=== PATIENT | female | born 1960 | race Caucasian/White ===

== ENCOUNTER 2016-10-22 00:10 | Inpatient (IN) | payer OTHER ==
[~2016-10-22] VITALS: Ht 160 cm; Wt 68.9 kg
[~2016-10-22 00:10] MED LIST: /ESOM40CA PO; /ONDA4TA PO; /PANT40TA OR; /SUCR1TA OR; ACET65TA OR; ALLE25CA OR; ASPI650T2 OR; FERR325T OR; FLAG250T PO; IBUP200C PO; LEVO500T PO; METO10TA2 OR; MULTIVIT PO; PERCOCET PO
[2016-10-22] MEDS ORDERED: GI COCKTAIL 50ML BTL(HYOSCYAMINE/MAALOX/LIDOCAINE VISCOUS)(1:3:1) PO ONE (02:00)
[2016-10-22 02:23] LABS: BASO % 0.3 % (0.0-1.0); EOS # 0.1 K/mm3 (0.0-0.50); EOS % 1.5 % (0.0-3.0); LARGE UNSTAINED CELL # 0.1 K/mm3 (0.0-0.4); LYMPH # 1.2 K/mm3 (1.5-4.5); LYMPH % 16.4 % (24.0-44.0); MEAN CORPUSCULAR HEMOGLOBIN 30.3 pg (27.0-33.0); MEAN CORPUSCULAR HGB CONC 33.2 g/dl (32.0-36.5); MEAN CORPUSCULAR VOLUME 91.2 fl (80.0-96.0); MONO # 0.4 K/mm3 (0.0-0.8); MONO % 5.2 % (0.0-5.0); NEUTROPHILS # 5.5 K/mm3 (1.8-7.7); NEUTROPHILS % 74.5 % (36.0-66.0); PLATELET COUNT, AUTOMATED 322 k/mm3 (150-450); RED CELL DISTRIBUTION WIDTH 13.4 % (11.5-14.5); WHITE BLOOD COUNT 7.4 K/mm3 (4.0-10.0)
[2016-10-22 02:38] LABS: ALBUMIN 4.6 GM/DL (3.2-5.2); ALBUMIN/GLOBULIN RATIO 1.24 (1.00-1.93); ALKALINE PHOSPHATASE 123 U/L (45-117); ALT/SGPT 199 U/L (12-78); ANION GAP 14 MEQ/L (8-16); AST/SGOT 230 U/L (15-37); BILIRUBIN,DIRECT 0.1 MG/DL (0.0-0.2); BILIRUBIN,TOTAL 0.4 MG/DL (0.2-1.0); BLOOD UREA NITROGEN 14 MG/DL (7-18); CALCIUM LEVEL 9.4 MG/DL (8.5-10.1); CARBON DIOXIDE LEVEL 26 MEQ/L (21-32); CHLORIDE LEVEL 99 MEQ/L (98-107); CREATININE FOR GFR 0.83 MG/DL (0.55-1.02); GLOMERULAR FILTRATION RATE > 60.0 (>51); GLUCOSE, FASTING 77 MG/DL (70-105); POTASSIUM SERUM 3.8 MEQ/L (3.5-5.1); SODIUM LEVEL 139 MEQ/L (136-145); TOTAL PROTEIN 8.3 GM/DL (6.4-8.2)
[2016-10-22] MEDS ORDERED: NS 1,000 ML IV ONE (03:15)
[2016-10-22] MEDS ORDERED: MORPHINE 4 MG/ML 1ML SYRINGE IV ONE (03:15)
--- NOTE | 2016-10-22 04:30 | REPUSA ---
CLINICAL HISTORY: Evaluate biliary tree. TECHNIQUE: Realtime sonographic images were obtained in multiple projections. COMMENTS: The liver is of normal size, parenchyma demonstrates normal echogenicity. No discrete hepatic mass is seen. There is no intra or extrahepatic biliary ductal dilatation. CBD measures 4.5mm. The gallbladder is p hysiologically distended with evidence of calculi. The gallbladder wall is not thickened and there is no pericholecystic fluid. There is no abdominal ascites. The right kidney measures 9.7x4.3x4.4 cm, free of hydronephrosis. IMPRESSION: Cholelithiasis. Thank you for your kind referral of this patient.
[2016-10-22] MEDS ORDERED: ISOVUE-370 76% 100ML VIAL (Q9967) As Ordered ONE (04:33)
--- NOTE | 2016-10-22 05:11 | REPUSA ---
CLINICAL HISTORY: Abdominal pain. TECHNIQUE: Multiple axial, sagittal and coronal CT images were obtained through the abdomen and pelvi s after administration of intravenous contrast material. COMMENTS: 1.2 cm well-defined hypodense lesion of the right hepatic lobe. The liver is of uniform attenuation without mass or defect. There is no intra or extrahepatic biliary ductal dilatation. The spleen is normal. The gallbladder is within normal limits. The pancreas is of normal contour and attenuation characteristics. There is no evidence of adrenal mass. Changes from prior gastric bypass surgery. 3 mm right renal nonobstructing stone. Both kidneys demonstrate prompt and equal nephrograms. The kidneys are normal in size, shape and conf iguration. There is no evidence of renal or ureteral mass. No left renal or ureteral calculi are iden tified. There is no hydroureter or hydronephrosis. No evidence for appendicitis. There is no bowel wall thickening. No evidence for small or large nicole l obstruction. There is no evidence of abdominal ascites or lymphadenopathy. There is no evidence of intrinsic or extrinsic bladder mass. There is no pelvic ascites or lymphadeno pepper. Diffuse thickening of the wall of the bladder. Images of the lung bases show no evidence of pleural or parenchymal mass. There are no pleural effusi ons. The bony structures are free of lytic or blastic lesions. Anterolisthesis of L5 on S1 measuring 12 mm. Associated spondylosis. IMPRESSION: Cholelithiasis. Nondilated biliary tree. Distended gallbladder. Nonobstructing right nephrolithiasis. Thickened bladder suspicious for cystitis. Fecal stasis in the large bowel. Thank you for your kind referral of this patient.
[2016-10-22] MEDS ORDERED: HYDROmorphone HCL 1 MG/ML SYRINGE (J1170) IV ONE (05:45)
[2016-10-22] MEDS ORDERED: MORPHINE 2 MG/ML 1ML SYRINGE IV PRN (08:15)
[2016-10-22] MEDS ORDERED: ONDANSETRON 4MG/2ML VIAL (J2405) IV PRN (08:15)
[2016-10-22] MEDS ORDERED: NORCO, ANEXSIA 5/325MG TABLET (HYDROcodone/ACETAMINOPHEN) PO PRN (08:15)
[2016-10-22] MEDS ORDERED: ACETAMINOPHEN TAB 650MG DOSE (2X325MG) PO PRN (08:15)
[2016-10-22 09:36] VITALS: BP 147/82
[2016-10-22] MEDS: metroNIDAZOLE 500 MG in APPROPRIATE DILUENT 1 EA IV SCH ×3 (09:51→21:02)
[2016-10-22] MEDS: LR 1,000 ML IV SCH ×2 (09:51→21:02)
[2016-10-22] MEDS: SENOKOT S TAB PO SCH ×2 (09:51→21:03)
[2016-10-22] MEDS: CIPROFLOXACIN 400 MG in APPROPRIATE DILUENT 1 EA IV SCH ×2 (11:04→22:23)
[2016-10-22 14:00] VITALS: BP 141/72
[2016-10-22 15:51] LABS: ALBUMIN 3.9 GM/DL (3.2-5.2); ALBUMIN/GLOBULIN RATIO 1.34 (1.00-1.93); ALKALINE PHOSPHATASE 94 U/L (45-117); ALT/SGPT 126 U/L (12-78); ANION GAP 6 MEQ/L (8-16); AST/SGOT 90 U/L (15-37); BILIRUBIN,TOTAL 0.3 MG/DL (0.2-1.0); BLOOD UREA NITROGEN 7 MG/DL (7-18); CALCIUM LEVEL 9.2 MG/DL (8.5-10.1); CARBON DIOXIDE LEVEL 29 MEQ/L (21-32); CHLORIDE LEVEL 106 MEQ/L (98-107); CREATININE FOR GFR 0.66 MG/DL (0.55-1.02); GLOMERULAR FILTRATION RATE > 60.0 (>51); GLUCOSE, FASTING 86 MG/DL (70-105); POTASSIUM SERUM 4.6 MEQ/L (3.5-5.1); SODIUM LEVEL 141 MEQ/L (136-145); TOTAL PROTEIN 6.8 GM/DL (6.4-8.2)
[2016-10-22 22:00] VITALS: BP 156/84
[2016-10-23] VITALS (8 sets, daily range): BP systolic 121–142; BP diastolic 66–84
[2016-10-23] MEDS: metroNIDAZOLE 500 MG in APPROPRIATE DILUENT 1 EA IV SCH ×4 (02:57→20:03)
[2016-10-23 06:47] LABS: BASO % 0.3 % (0.0-1.0); EOS # 0.2 K/mm3 (0.0-0.50); EOS % 3.2 % (0.0-3.0); LARGE UNSTAINED CELL # 0.1 K/mm3 (0.0-0.4); LARGE UNSTAINED CELL % 1.9 % (0.0-4.0); LYMPH # 1.2 K/mm3 (1.5-4.5); LYMPH % 18.1 % (24.0-44.0); MEAN CORPUSCULAR HEMOGLOBIN 29.8 pg (27.0-33.0); MEAN CORPUSCULAR HGB CONC 32.2 g/dl (32.0-36.5); MEAN CORPUSCULAR VOLUME 92.4 fl (80.0-96.0); MONO # 0.4 K/mm3 (0.0-0.8); MONO % 6.6 % (0.0-5.0); NEUTROPHILS # 4.7 K/mm3 (1.8-7.7); NEUTROPHILS % 69.9 % (36.0-66.0); PLATELET COUNT, AUTOMATED 269 k/mm3 (150-450); RED CELL DISTRIBUTION WIDTH 13.5 % (11.5-14.5); WHITE BLOOD COUNT 6.7 K/mm3 (4.0-10.0)
[2016-10-23 07:14] LABS: ALBUMIN 3.5 GM/DL (3.2-5.2); ALBUMIN/GLOBULIN RATIO 1.17 (1.00-1.93); ALKALINE PHOSPHATASE 82 U/L (45-117); ALT/SGPT 88 U/L (12-78); ANION GAP 4 MEQ/L (8-16); AST/SGOT 43 U/L (15-37); BILIRUBIN,TOTAL 0.3 MG/DL (0.2-1.0); BLOOD UREA NITROGEN 4 MG/DL (7-18); CALCIUM LEVEL 8.8 MG/DL (8.5-10.1); CARBON DIOXIDE LEVEL 31 MEQ/L (21-32); CHLORIDE LEVEL 107 MEQ/L (98-107); CREATININE FOR GFR 0.71 MG/DL (0.55-1.02); GLOMERULAR FILTRATION RATE > 60.0 (>51); GLUCOSE, FASTING 96 MG/DL (70-105); POTASSIUM SERUM 4.3 MEQ/L (3.5-5.1); SODIUM LEVEL 142 MEQ/L (136-145); TOTAL PROTEIN 6.5 GM/DL (6.4-8.2)
[2016-10-23] MEDS: SENOKOT S TAB PO SCH ×2 (08:25→20:03)
[2016-10-23] MEDS: NORCO, ANEXSIA 5/325MG TABLET (HYDROcodone/ACETAMINOPHEN) PO PRN ×2 (08:26→14:35)
[2016-10-23] MEDS: CIPROFLOXACIN 400 MG in APPROPRIATE DILUENT 1 EA IV SCH ×2 (09:52→21:19)
[2016-10-23] MEDS ORDERED: LIDOCAINE 1% SDV INJ 30 ML VIAL As Ordered ONE (14:23)
[2016-10-23] MEDS ORDERED: BUPIVACAINE HCL 0.25% 30 ML VIAL As Ordered ONE (14:23)
[2016-10-23] MEDS ORDERED: CONRAY-60 60% 50ML VIAL (Q9961) As Ordered ONE (14:23)
[2016-10-23] MEDS: LR 1,000 ML IV SCH ×2 (14:29→20:03)
[2016-10-23] MEDS ORDERED: MIDAZOLAM INJ 2 MG/2 ML VIAL (J2250) As Ordered ONE (16:54)
[2016-10-23] MEDS ORDERED: fentaNYL 250 MCG/5 ML INJECTION (J3010) As Ordered ONE (16:54)
[2016-10-23] MEDS ORDERED: PROPOFOL 200 MG/20 ML VIAL As Ordered ONE (16:54)
[2016-10-23] MEDS ORDERED: LIDOCAINE 2% INJ 100 MG/5 ML SDV (FOR ANES.) As Ordered ONE (16:54)
[2016-10-23] MEDS ORDERED: ROCURONIUM BROMIDE 50 MG/5 ML VIAL As Ordered ONE ×2 (16:54→18:02)
[2016-10-23] MEDS ORDERED: ePHEDrine SULFATE 25 MG/5 ML(5MG/ML) SYRINGE As Ordered ONE (17:20)
[2016-10-23] MEDS ORDERED: NEOSTIGMINE 1MG/ML 5 ML SYRINGE (J2710) As Ordered ONE (17:34)
[2016-10-23] MEDS ORDERED: ONDANSETRON 4MG/2ML VIAL (J2405) As Ordered ONE (17:34)
[2016-10-23] MEDS ORDERED: KETOROLAC 60 MG/2 ML VIAL (J1885) As Ordered ONE (17:34)
[2016-10-23] MEDS ORDERED: dexameTHASONE 4 MG/ML 1ML VIAL (J1100) As Ordered ONE (17:34)
[2016-10-23] MEDS ORDERED: GLYCOPYRROLATE INJ 0.2 MG/ML 2 ML VIAL As Ordered ONE (17:34)
[2016-10-23] MEDS ORDERED: METOCLOPRAMIDE INJ 10MG/2ML VIAL (J2765) As Ordered ONE (18:22)
--- NOTE | 2016-10-23 18:40 | ROOPDOC ---
[facility] Report Of Operation Report of Operation DATE OF PROCEDURE: 10/23/16 PREPROCEDURE DIAGNOSIS: Cholelithiasis, possible Acute Cholecystitis POSTPROCEDURE DIAGNOSIS: PROCEDURE: Laparoscopic Cholecystectomy with Intraoperative Cholangiogram SURGEON: Dianelys COATER BRAKE LININGS: none ANESTHESIA: general EBL: 30-40 MlS OPERATIVE FINDINGS: dilated gallbladder without acute inflammation. Enlarged liver, fatty replaced. Intraoperative cholangiogram did not show any cbd stones Patient is admitted for epigastric and right upper quadrant pain associated with her cholelithiasis. She had previous history of laparoscopic gastric bypass. She has some mild abnormal LFTs on presentation which gradually came down on its own suspicious for possible transient passage of stone from the gallbladder through the biliary tree. She is brought to the OR for laparoscopic cholecystectomy and planned intraoperative cholangiogram to make sure no leftover stones in the common bile duct. She has been receiving Cipro and metronidazole perioperatively. She was brought to the operating room, placed supine on the table. General endotracheal anesthesia started. Her abdomen prepped and draped in usual sterile fashion. She had compression stockings for DVT prophylaxis. After surgical timeout him again surgery. Entry into the abdomen done through an incision above the umbilicus. Veress needle inserted and intra-abdominal insufflation done to a pressure of 15 mmHg. Using the same incision a 5 mm Visiport was placed under direct vision laparoscope. She was then placed on the reverse Trendelenburg position, her right side tilted up about 30 to further expose the gallbladder. 3 working ports were placed in their usual position including an 11 mm port at the epigastric area. The gallbladder was noted to be moderately distended, extending several centimeters off from the liver edge. Parts of the liver appears fatty replaced but still smooth in appearance. Fundus of gallbladder was grasped and the gallbladder elevated superiorly exposing the infundibulum neck to gallbladder. There were some small adhesions at the underside of the gallbladder which was easily lysed. The past cystic triangle was dissected both with [place] instrument and Bovie cautery. The cystic duct was identified as well as the cystic artery. There were both circumferentially dissected. The posterior wall of the neck of the gallbladder was likewise dissected free off the liver bed. The Archer clamp was then used in the neck the gallbladder was clamped off. The cholangiogram needle inserted under direct vision into the infundibulum of the gallbladder. We tested this is noted to be working. Cholangiogram was then performed. There was reflux back of the contrast into the gallbladder. We repositioned the clamp and we did the cholangiogram. The cystic duct, common bile duct was opacified but the distal part did not opacify much but the duct was noted to be of normal caliber and no filling defect identified. Contrast went through to the duodenum. He proceeded with the surgery removing the rest of the gallbladder from the liver bed. There was some mild oozing at the middle off the liver bed as well as the lateral capsular edge of the gallbladder. This was controlled with Bovie cautery. Gallbladder was removed. On re-insufflation and we irrigated as we had some spillage of bile from the cholangiogram catheter insertion site. All visible bile irrigated and suctioned off until there was clear return. The bleeding portion of the liver was examined and noted good hemostasis at the end of the procedure. The clips were noted to be in place. The abdomen was then deflated. All ports were removed. The epigastric fascial defect repaired with 0 Vicryl in mattress fashion. All skin incisions closed with 4-0 Monocryl in subcuticular fashion Steri-Strips and gauze dressings and placed. Patient was then promptly awake and extubated and brought to the recovery room stable sponges and instruments verified to be correct . SANDIP RAHMAN MD October 23, 2016 17:23
[2016-10-23] MEDS ORDERED: MEPERIDINE INJ 25 MG/ML VIAL (J2175) IV PRN (19:00)
[2016-10-23] MEDS ORDERED: PERCOCET 5MG/325MG TAB PO PRN (19:00)
[2016-10-23] MEDS ORDERED: ONDANSETRON 4MG/2ML VIAL (J2405) IV PRN (19:00)
[2016-10-23] MEDS ORDERED: fentaNYL 100 MCG/2 ML INJECTION (J3010) IV PRN (19:00)
[2016-10-23] MEDS ORDERED: METOCLOPRAMIDE INJ 10MG/2ML VIAL (J2765) IV PRN (19:00)
[2016-10-23] MEDS ORDERED: LR 1,000 ML IV SCH (19:00)
--- NOTE | 2016-10-23 19:30 | REP ---
Intraoperative cholangiogram: Eight views: History: Cholecystitis. 1 minute 48 seconds of fluoroscopy time reported. Findings: A sequence of eight last image hold fluoroscopic spot radiographs of the right upper quadrant of the abdomen demonstrate contrast injection opacifying a homogeneous gallbladder and partially filling the common bile duct. No common bile duct stone is seen. The intrahepatic bile ducts are poorly visualized. There is some contrast in the duodenum. There is a moderate amount of contrast which appears to be pooling in the peritoneal space at the lateral margin of the liver. Signed by Steven Sánchez MD 10/23/2016 08:48 P
[2016-10-24 00:35] VITALS: BP 127/73
[2016-10-24 02:00] VITALS: BP 119/74
[2016-10-24] MEDS: metroNIDAZOLE 500 MG in APPROPRIATE DILUENT 1 EA IV SCH ×2 (02:51→09:00)
[2016-10-24 05:10] VITALS: BP 138/85
[2016-10-24] MEDS: LR 1,000 ML IV SCH (09:00)
[2016-10-24] MEDS: SENOKOT S TAB PO SCH (09:00)
[2016-10-24 09:01] LABS: BASO % 0.4 % (0.0-1.0); EOS # 0.2 K/mm3 (0.0-0.50); EOS % 1.8 % (0.0-3.0); LARGE UNSTAINED CELL # 0.1 K/mm3 (0.0-0.4); LARGE UNSTAINED CELL % 0.9 % (0.0-4.0); LYMPH # 1.4 K/mm3 (1.5-4.5); LYMPH % 15.1 % (24.0-44.0); MEAN CORPUSCULAR HEMOGLOBIN 30.1 pg (27.0-33.0); MEAN CORPUSCULAR HGB CONC 32.9 g/dl (32.0-36.5); MEAN CORPUSCULAR VOLUME 91.4 fl (80.0-96.0); MONO # 0.4 K/mm3 (0.0-0.8); MONO % 4.5 % (0.0-5.0); NEUTROPHILS # 6.9 K/mm3 (1.8-7.7); NEUTROPHILS % 77.3 % (36.0-66.0); PLATELET COUNT, AUTOMATED 224 k/mm3 (150-450); RED CELL DISTRIBUTION WIDTH 13.7 % (11.5-14.5); WHITE BLOOD COUNT 8.9 K/mm3 (4.0-10.0)
[2016-10-24 09:21] LABS: ALBUMIN 3.3 GM/DL (3.2-5.2); ALBUMIN/GLOBULIN RATIO 1.27 (1.00-1.93); ALKALINE PHOSPHATASE 77 U/L (45-117); ALT/SGPT 77 U/L (12-78); ANION GAP 9 MEQ/L (8-16); AST/SGOT 43 U/L (15-37); BILIRUBIN,TOTAL 0.2 MG/DL (0.2-1.0); BLOOD UREA NITROGEN 5 MG/DL (7-18); CALCIUM LEVEL 8.4 MG/DL (8.5-10.1); CARBON DIOXIDE LEVEL 28 MEQ/L (21-32); CHLORIDE LEVEL 105 MEQ/L (98-107); CREATININE FOR GFR 0.75 MG/DL (0.55-1.02); GLOMERULAR FILTRATION RATE > 60.0 (>51); GLUCOSE, FASTING 133 MG/DL (70-105); POTASSIUM SERUM 3.7 MEQ/L (3.5-5.1); SODIUM LEVEL 142 MEQ/L (136-145); TOTAL PROTEIN 5.9 GM/DL (6.4-8.2)
[2016-10-24 10:00] VITALS: BP 144/85
[2016-10-24] MEDS: CIPROFLOXACIN 400 MG in APPROPRIATE DILUENT 1 EA IV SCH (10:10)
[2016-10-24] MEDS ORDERED: NORCOTAB PO (10:19)
--- NOTE | 2016-10-24 10:27 | IPNPDOC ---
Assessment/Plan Date Seen Date Seen The patient was seen on 10/24/16. Plan / VTE VTE Prophylaxis Ordered?: No VTE Exclusion Mechanical Proph: Low Risk for VTE VTE Exclusion Pharmacological: At Low Risk for VTE Plan Diet: Continue Current Activity: Encourage Ambulation Anticipated Discharge: Home (Does not need antibiotics, will d/c on pain meds. Follow up with me in 2 weeks) Subjective CC/HPI The patient is a 55-year-old female admitted with a reason for visit of Abnormal Lfts; Cholelithiasis. Events since last encounter Patient had laparoscopic cholecystectomy with intraoperative cholangiogram yesterday. Cholangiogram did not reveal any stones in the common bile duct. Patiend doing well postoperatively. Tolerating regulard diet. Denies nausea, vomiting. No febrile episodes reported General: Reports: Normal Appetite, Denies: Chills, Night Sweats, Fatigue, Malaise Constitutional: Denies: Chills, Fever, Night Sweats Eyes: Denies: Pain, Vision change Skin: Denies: Rash, Lesions, Breakdown Gastrointestinal: Denies: Nausea, Vomiting, Abdominal Pain, Diarrhea, Constipation Objective General Exam: No Acute Distress EYE EXAM: PERRLA, Conjunctiva & lids normal, EOMI, No: Sclera icteric Chest Exam: Clear to auscultation Heart Exam: Rate Normal ABDOMEN EXAM: Other (abdomen soft, nondistended. Port sites clean dry and intact. Nontender over the right upper quadrant area) Extremity Exam: Normal pulses, No: Clubbing, Cyanosis, Edema Skin Exam: Nl turgor and temperature, No: Rash, Breakdown VS/I&O Vital Sign - Last 24 Hours 10/23/16 10/23/16 10/23/16 10/23/16 08:26 14:00 14:35 15:10 Temp 97.9 Pulse 72 Resp 18 17 18 18 B/P (MAP) 142/84 (103) Pulse Ox 100 O2 Delivery Room Air Room Air Room Air Room Air 10/23/16 10/23/16 10/23/16 10/23/16 16:00 18:51 18:55 19:00 Temp 99.3 97.1 Pulse 78 97 97 82 Resp 17 20 20 20 B/P (MAP) 124/66 (85) 142/73 (96) 161/77 (105) 148/78 (101) Pulse Ox 98 97 99 97 O2 Delivery Room Air Nasal Cannula Nasal Cannula Nasal Cannula O2 Flow Rate 2 2 2 10/23/16 10/23/16 10/23/16 10/23/16 19:05 19:10 19:15 19:20 Temp 97.8 Pulse 91 83 78 71 Resp 20 20 20 20 B/P (MAP) 134/68 (90) 141/76 (97) 133/75 (94) 130/77 (94) Pulse Ox 96 98 95 94 O2 Delivery Room Air Room Air Room Air Room Air 10/23/16 10/23/16 10/23/16 10/23/16 19:25 19:35 20:05 20:35 Temp 98.2 98.5 98.4 Pulse 68 75 80 102 Resp 18 B/P (MAP) 124/72 (89) 128/75 (92) 132/68 (89) 127/77 (94) Pulse Ox 94 94 97 95 O2 Delivery Room Air Room Air Room Air Room Air 10/23/16 10/23/16 10/24/16 10/24/16 22:35 23:35 00:35 02:00 Temp 98.9 98.5 98.9 98.9 Pulse 93 102 99 98 Resp B/P (MAP) 126/76 (93) 121/66 (84) 127/73 (91) 119/74 (89) Pulse Ox 95 95 97 97 O2 Delivery Room Air Room Air Room Air Room Air 10/24/16 10/24/16 05:10 06:05 Temp 99.4 99.1 Pulse 98 Resp B/P (MAP) 138/85 (102) Pulse Ox 94 O2 Delivery Room Air I&O- Last 24 Hours up to 6 AM 10/24/16 06:00 Intake Total 3600 ml Output Total 2530 ml Balance 1070 ml CBC/BMP labs reviewed, LFTs normal except mild elevated AST at 43Laboratory Tests 10/24/16 08:40 Red Blood Count 4.16, Mean Corpuscular Volume 91.4, Mean Corpuscular Hemoglobin 30.1, Mean Corpuscular Hemoglobin Concent 32.9, Red Cell Distribution Width 13.7 , Neutrophils (%) (Auto) 77.3 H, Lymphocytes (%) (Auto) 15.1 L, Monocytes (%) ( Auto) 4.5, Eosinophils (%) (Auto) 1.8, Basophils (%) (Auto) 0.4, Neutrophils # ( Auto) 6.9, Lymphocytes # (Auto) 1.4 L, Monocytes # (Auto) 0.4, Eosinophils # ( Auto) 0.2, Basophils # (Auto) 0.0, Calcium Level 8.4 L, Aspartate Amino Transf ( AST/SGOT) 43 H, Alanine Aminotransferase (ALT/SGPT) 77, Alkaline Phosphatase 77 , Total Bilirubin 0.2, Total Protein 5.9 L, Albumin 3.3 Medications Current Medications Acetaminophen (Tylenol Tab) 650 mg Q4HP PRN PO MILD PAIN or TEMP > 101; Start 10/22/16 at 08:15; Stop 11/21/16 at 08:14 Acetaminophen/ Hydrocodone Bitart ([place], Anexsia 5/325) 1 tab Q4HP PRN PO MODERATE PAIN (PS 5-7) Last administered on 10/23/16 14:35; Start 10/22/16 at 08:15; Stop 10/29/16 at 08:14 Acetaminophen/ Hydrocodone Bitart ([place], Anexsia 5/325) 2 tab Q6HP PRN PO SEVERE PAIN (PS 8-10); Start 10/22/16 at 08:15; Stop 10/29/16 at 08:14 Ciprofloxacin 400 mg/IV Miscellaneous Supplies 200 ml @ 200 mls/hr Q12H IV Last administered on 10/23/16 21:19; Start 10/22/16 at 10:00; Stop 10/29/16 at 09:59 Fentanyl Citrate (Sublimaze) 25 mcg Q5MP PRN IV MODERATE PAIN (PS 4-7); Start 10/23/16 at 19:00; Stop 10/23/16 at 20:00; Status DC Home Med (Med Rec Complete!) ASDIRECTED XX ; Start 10/22/16 at 06:30; Stop 03/31 at 06:30; Status DC Lactated Ringer's 1,000 ml @ 80 mls/hr [id number] IV Last administered on 20:03; Start 10/22/16 at 08:01; Stop 11/21/16 at 08:00 Lactated Ringer's 1,000 ml @ 100 mls/hr Q10H IV ; Start 10/23/16 at 19:00; Stop 10/23/16 at 20:00; Status DC Meperidine HCl (Demerol) 12.5 mg Q5MP PRN IV SHIVERING; Start 10/23/16 at 19:00 ; Stop 10/23/16 at 20:00; Status DC Metoclopramide HCl (REGLAN INJection) 10 mg Q6HP PRN IV NAUSEA OR VOMITING; Start 10/23/16 at 19:00; Stop 10/23/16 at 20:00; Status DC Metronidazole 500 mg/IV Miscellaneous Supplies 100 ml @ 100 mls/hr Q6H IV Last administered on 10/24/16t 02:51; Start 10/22/16 at 09:00; Stop 10/29/16 at 08:59 Morphine Sulfate (Morphine Sulfate Inj) 2 mg Q2HP PRN IV SEVERE PAIN (PS 8-10) ; Start 10/22/16 at 08:15; Stop 10/29/16 at 08:14 Ondansetron HCl (ZOFRAN INJection) 4 mg Q4HP PRN IV NAUSEA OR VOMITING; Start 10/23/16 at 19:00; Stop 10/23/16 at 20:00; Status DC Ondansetron HCl (ZOFRAN INJection) 4 mg Q6HP PRN IV NAUSEA OR VOMITING; Start 10/22/16 at 08:15; Stop 11/21/16 at 08:14 Oxycodone/ Acetaminophen (Percocet 5mg/ 325mg Tablet) 1 tab ASDIRECTED PRN PO MODERATE PAIN (PS 4-7); Start 10/23/16 at 19:00; Stop 10/23/16 at 20:00; Status DC Senna/Docusate Sodium (Senokot S) 1 tab BID PO Last administered on 10/23/16t 20:03; Start 10/22/16 at 09:00; Stop 11/21/16 at 08:59 Allergies: Coded Allergies: No Known Drug Allergy (Verified Allergy, Unknown, 09/19/12) SEASONAL ALLERGIES (Verified Allergy, Unknown, 12/31/11) SANDIP RAHMAN MD October 24, 2016 08:17
--- NOTE | 2016-10-24 15:02 | DS.PDOC ---
Discharge Summary General Date of Admission October 22, 2016 at 08:01 Date of Discharge October 24, 2016 Attending Physician: SANDIP RAHMAN MD Discharge Summary PROCEDURES PERFORMED DURING STAY: Laparoscopic Cholecystectomy with intraoperative cholangiogram. ADMITTING DIAGNOSES: 1. . Symptomatic cholelithiasis with biliary colic possible acute cholecystitis 2. Abnormal LFTs, probable transient passage of gallstones to the common bile duct 3. Gastric bypass status DISCHARGE DIAGNOSES: 1. . Symptomatic cholelithiasis status post laparoscopic Cholecystectomy 2. Gastric bypass status COMPLICATIONS/CHIEF COMPLAINT: Abnormal Lfts; Cholelithiasis. HISTORY OF PRESENT ILLNESS: See HPI HOSPITAL COURSE: Patient was admitted to the hospital under my care. She was started on ciprofloxacin and metronidazole. We serially followed her LFTs which shows gradual trending down to near normal. She underwent laparoscopic cholecystectomy on hospital day #2. An intraoperative cholangiogram was likewise performed to make sure there are no leftover stones in the biliary tree. No stones were found during cholangiogram. She did well perioperatively. She tolerated regular diet. She has minimal incisional discomfort. Her LFTs were followed postoperatively and save for mildly elevated AST has gone back to normal limits. She was subsequently discharged improved. DISCHARGE MEDICATIONS: Please see below. ALLERGIES: Please see below. PHYSICAL EXAMINATION ON DISCHARGE: Abdominal exam shows port sites to be clean, dry, intact. Flat soft nondistended abdomen. Nontender over the right upper quadrant area LABORATORY DATA: Please see below. IMAGING: PROGNOSIS: Improved ACTIVITY: Light activity for 2 weeks. DIET: Regular diet DISCHARGE PLAN: Follow-up with me in 2 weeks' time DISPOSITION: 01 Home, Self-Care. DISCHARGE INSTRUCTIONS: 1. Regular diet 2. Wound care: Patient may shower 2 days postop. May remove top gauze dressings and Band-Aids. Keep Steri-Strips for 1 week 3. Light activity for 2 weeks 4. Follow up with me in 2 weeks' time DISCHARGE CONDITION: Improved TIME SPENT ON DISCHARGE: Greater than 30 minutes. Vital Signs/I&Os Vital Signs Date Time Temp Pulse Resp B/P (MAP) Pulse Ox O2 Delivery O2 Flow Rate FiO2 10/24/16 10:00 97.3 98 21 144/85 (104) 92 Room Air 10/23/16 19:00 2 I&O- Last 24 Hours up to 6 AM 10/24/16 06:00 Intake Total 3600 ml Output Total 2530 ml Balance 1070 ml Laboratory Data Labs 24H Laboratory Tests 2 10/24/16 08:40: White Blood Count 8.9, Red Blood Count 4.16, Hemoglobin 12.5, Hematocrit 38.1, Mean Corpuscular Volume 91.4, Mean Corpuscular Hemoglobin 30.1, Mean Corpuscular Hemoglobin Concent 32.9, Red Cell Distribution Width 13.7, Platelet Count 224, Neutrophils (%) (Auto) 77.3H, Lymphocytes (%) (Auto) 15.1L, Monocytes (%) (Auto) 4.5, Eosinophils (%) (Auto) 1.8, Basophils (%) (Auto) 0.4, Neutrophils # (Auto) 6.9, Lymphocytes # (Auto) 1.4L, Monocytes # (Auto) 0.4, Eosinophils # (Auto) 0.2, Basophils # (Auto) 0.0, Large Unclassified Cells % 0.9 , Large Unclassified Cells # 0.1, Anion Gap 9, Glomerular Filtration Rate > 60.0 , Blood Urea Nitrogen 5L, Creatinine 0.75, Sodium Level 142, Potassium Level 3.7 , Chloride Level 105, Carbon Dioxide Level 28, Calcium Level 8.4L, Aspartate Amino Transf (AST/SGOT) 43H, Alanine Aminotransferase (ALT/SGPT) 77, Alkaline Phosphatase 77, Total Bilirubin 0.2, Total Protein 5.9L, Albumin 3.3, Albumin/ Globulin Ratio 1.27 CBC/BMP Laboratory Tests 10/24/16 08:40 Red Blood Count 4.16, Mean Corpuscular Volume 91.4, Mean Corpuscular Hemoglobin 30.1, Mean Corpuscular Hemoglobin Concent 32.9, Red Cell Distribution Width 13.7 , Neutrophils (%) (Auto) 77.3 H, Lymphocytes (%) (Auto) 15.1 L, Monocytes (%) ( Auto) 4.5, Eosinophils (%) (Auto) 1.8, Basophils (%) (Auto) 0.4, Neutrophils # ( Auto) 6.9, Lymphocytes # (Auto) 1.4 L, Monocytes # (Auto) 0.4, Eosinophils # ( Auto) 0.2, Basophils # (Auto) 0.0, Calcium Level 8.4 L, Aspartate Amino Transf ( AST/SGOT) 43 H, Alanine Aminotransferase (ALT/SGPT) 77, Alkaline Phosphatase 77 , Total Bilirubin 0.2, Total Protein 5.9 L, Albumin 3.3 Discharge Medications Scheduled PRN Acetaminophen/Hydrocodone ([place], Anexsia 5/325) 1 Tab Tab, 1-2 TAB PO Q4HP PRN for MODERATE PAIN (PS 5-7) Allergies Coded Allergies: No Known Drug Allergy (Verified Allergy, Unknown, 09/19/12) SEASONAL ALLERGIES (Verified Allergy, Unknown, 12/31/11) SANDIP RAHMAN MD October 24, 2016 15:02
== END 2016-10-24 12:38 | disposition home or self-care (01) | DRG 419 ==
LOC: M ED 02:20 → M ED INP 08:01 → M MSPAV 09:36
PROVIDERS: ADMIT Surgery; ATTEND Surgery
PROC: 0FT44ZZ Resection of Gallbladder, Percutaneous Endoscopic Approach (ICD-10-PCS; principal; 2016-10-23 15:00)
DX: K80.62 Calculus of gallbladder and bile duct with acute cholecystitis without obstruction (principal); Z79.899 Other long term (current) drug therapy

== ENCOUNTER → 2017-11-23 | Outpatient (REF) | payer OTHER ==
[2017-11-23 13:52] LABS: BASO % 0.4 % (0.0-1.0); EOS # 0.1 10^3/uL (0.0-0.50); HEMATOCRIT 43.1 % (36.0-47.0); HEMOGLOBIN 13.9 g/dl (12.0-15.5); IMMATURE GRANULOCYTE % 0.2 % (0-3.0); LYMPH # 1.2 10^3/uL (1.5-4.5); LYMPH % 26.5 % (24.0-44.0); MEAN CORPUSCULAR HEMOGLOBIN 29.8 pg (27.0-33.0); MEAN CORPUSCULAR HGB CONC 32.3 g/dl (32.0-36.5); MEAN CORPUSCULAR VOLUME 92.3 fl (80.0-96.0); MONO # 0.4 10^3/uL (0.0-0.8); MONO % 8.9 % (0.0-5.0); NEUTROPHILS # 2.8 10^3/uL (1.8-7.7); PLATELET COUNT, AUTOMATED 353 10^3/uL (150-450); RED BLOOD COUNT 4.67 10^6/uL (4.00-5.40); RED CELL DISTRIBUTION WIDTH 15.1 % (11.5-14.5); WHITE BLOOD COUNT 4.5 10^3/uL (4.0-10.0)
[2017-11-23 14:05] LABS: VITAMIN B12 LEVEL 506 PG/ML
[2017-11-23 14:06] LABS: ALBUMIN 4.3 GM/DL (3.2-5.2); ALBUMIN/GLOBULIN RATIO 1.39 (1.00-1.93); ALKALINE PHOSPHATASE 85 U/L (45-117); ALT/SGPT 49 U/L (12-78); ANION GAP 6 MEQ/L (8-16); AST/SGOT 32 U/L (7-37); BILIRUBIN,TOTAL 0.4 MG/DL (0.2-1.0); BLOOD UREA NITROGEN 13 MG/DL (7-18); CALCIUM LEVEL 9.3 MG/DL (8.5-10.1); CARBON DIOXIDE LEVEL 28 MEQ/L (21-32); CHLORIDE LEVEL 104 MEQ/L (98-107); CREATININE FOR GFR 0.95 MG/DL (0.55-1.30); FOLATE 7.5 NG/ML; GLOMERULAR FILTRATION RATE > 60.0 (>51); GLUCOSE, FASTING 83 MG/DL (70-100); POTASSIUM SERUM 4.5 MEQ/L (3.5-5.1); RHEUMATOID FACTOR QUANT < 10.0 IU/ML (<15.0); SODIUM LEVEL 138 MEQ/L (136-145); TOTAL PROTEIN 7.4 GM/DL (6.4-8.2)
[2017-11-23 14:16] LABS: ERYTHROCYTE SEDIMENTATION RATE 4 mm/hr (0-30)
[2017-11-23 14:26] LABS: ESTIMATED AVERAGE GLUCOSE 108 MG/DL (60-110); HEMOGLOBIN A1c 5.4 %
[2017-11-24 10:18] LABS: ALBUMIN 4.75 GM/DL (3.29-5.55); ALBUMIN % 64.2 % (55.8-66.1); ALPHA-1-GLOBULIN % 2.9 % (2.9-4.9); ALPHA-1-GLOBULINS 0.21 GM/DL (0.17-0.41); ALPHA-2-GLOBULINS 0.73 GM/DL (0.42-0.99); ALPHA-2-GLOBULINS % 9.8 % (7.1-11.8); BETA-1-GLOBULINS % 6.7 % (4.7-7.2); BETA-2-GLOBULINS 0.35 GM/DL (0.19-0.55); BETA-2-GLOBULINS % 4.7 % (3.2-6.5); GAMMA GLOBULIN % 11.7 % (11.1-18.8); GAMMA GLOBULINS 0.87 GM/DL (0.65-1.58)
[2017-11-25 12:43] LABS: DRVV SCREEN 37.2 SEC
[2017-11-25 12:51] LABS: PTT LUPUS TYPE ANTICOAG SCREEN 0.9 (0-1.2)
[2017-11-26 00:07] LABS: ANCA-ATYPICAL <1:20 titer (Neg:<1:20); ANTI DOUBLE STRAND-DNA AB <1 IU/mL (0-9); ANTINUCLEAR ANTIBODIES DIRECT Negative (Negative); CYTOPLASMIC NEUTROP AB ANCA-C <1:20 titer (Neg:<1:20); Lyme Disease IgG/IgM Antibodie <0.91 ISR (0.00-0.90); Lyme Disease IgM Ab Quantitati <0.80 index (0.00-0.79); PERINUCLEAR AB ANCA-P <1:20 titer (Neg:<1:20); SJOGREN'S ANTI SS-A <0.2 AI (0.0-0.9); SJOGREN'S ANTI SS-B <0.2 AI (0.0-0.9)
[2017-11-26 08:09] LABS: VITAMIN B1 LEVEL WHOLE BLOOD 97.3 nmol/L (66.5-200.0); VITAMIN E(ALPHA TOCOPHEROL) 9.5 mg/L (7.0-25.1); VITAMIN E(GAMMA TOCOPHEROL) 0.3 mg/L (0.5-5.5)
== END ==
LOC: M LABNEURO 09:14
DX: R53.83 Other fatigue (principal); F09 Unspecified mental disorder due to known physiological condition